=== PATIENT | male | born 1970 | race African-American/Black ===

== ENCOUNTER → 2019-08-15 | Emergency (ER) | payer OTHER ==
[~2019-08-15] VITALS: Ht 165.1 cm; Wt 78.0 kg
[~2019-08-15] MED LIST: COLCRYS0.6 MG PO; ORPH100T PO; PERCOCET 5/321 UDTAB PO; ULTRACET PO; ULTRAM50 MG PO
== END | disposition home or self-care (01) ==
LOC: ER 22:44
DX: M10.072 Idiopathic gout, left ankle and foot (principal); M79.672 Pain in left foot